=== PATIENT | male | born 1950 | race Two or more races ===

== ENCOUNTER 2017-12-17 05:43 | Inpatient (IN) | payer MEDICARE ==
[~2017-12-17] VITALS: Ht 185.4 cm; Wt 86.2 kg
[2017-12-17] VITALS (16 sets, daily range): BP systolic 116–149; BP diastolic 63–95
[2017-12-17] MEDS ORDERED: [UNRECOGNIZED DRUG - REMARK] PO (06:37)
[2017-12-17] MEDS ORDERED: fentaNYL 100 mcg/2 mL IV ONE (06:41)
[2017-12-17] MEDS ORDERED: Lidocaine 1% MPF 10mg/ml 5ml ONE (06:42)
[2017-12-17] MEDS ORDERED: Midazolam 2mg/2ml Inj ONE (06:42)
[2017-12-17] MEDS ORDERED: Propofol 200mg/20ml IV ONE ×2 (06:42→07:32)
[2017-12-17] MEDS ORDERED: cefOXitin 2gm Inj ONE (06:52)
[2017-12-17] MEDS ORDERED: Zemuron 50mg/5ml Inj IV ONE (06:53)
[2017-12-17] MEDS ORDERED: Succinylcholine 20mg/ml 10ml vial ONE (06:53)
[2017-12-17] MEDS ORDERED: ceFAZolin sod 1 GM in NS 55 ML IVPB ONE (07:00)
[2017-12-17] MEDS ORDERED: NS Irrig 1000ml ONE (07:00)
[2017-12-17] MEDS ORDERED: LR 1000ml ONE (07:00)
[2017-12-17] MEDS ORDERED: Sterile Water Irrig 1000ml IRRIG ONE (07:00)
[2017-12-17] MEDS ORDERED: Neostigmine 1mg/ml 10ml Inj ONE (07:00)
[2017-12-17] MEDS ORDERED: Bupivacaine 0.5% Inj 30 ml vial INJ ONE (07:14)
--- NOTE | 2017-12-17 07:24 | Pre-Procedure Note/Attestation ---
Pre-Procedure Note/Attestation Complete Prior to Procedure Planned Procedure: not applicable Procedure Narrative: laparoscopic radical prostatectomy Indications for Procedure Pre-Operative Diagnosis: prostate cancer Attestation I attest that I discussed the nature of the procedure; its benefits; risks and complications; and alternatives (and the risks and benefits of such alternatives ), prior to the procedure, with the patient (or the patient's legal medical detail representative). I attest that, if there was a reasonable possibility of needing a blood transfusion, the patient (or the patient's legal medical detail representative) was given the [facility] standardized written summary, pursuant to the [place] Blood Safety Act ([place] Health and Safety Code # 1645, as amended). I attest that I re-evaluated the patient just prior to the surgery and that there has been no change in the patient's H&P, except as documented below: Rylan Cao MD Dec 17, 2017 07:24
[2017-12-17] MEDS: ProvayBlue 5mg/ml 10ml amp INJ SCH ×2 (07:45→08:55)
[2017-12-17] MEDS ORDERED: Morphine Sulfate 10mg/ml Inj ONE (08:13)
[2017-12-17] MEDS ORDERED: Glycopyrrolate 0.2mg/ml 1ml Vial ONE (08:14)
[2017-12-17] MEDS ORDERED: Ketorolac 30mg Inj ONE (08:14)
[2017-12-17] MEDS ORDERED: Sodium Chloride 10ml vial INJ ONE (08:15)
[2017-12-17] MEDS ORDERED: LR 1000ml 1,000 ML IVLG SCH (08:26)
--- NOTE | 2017-12-17 08:26 | Anethesia Preoperative Eval ---
Anesthesia Pre-op PMH/ROS General Date of Evaluation: Dec 17, 2017 Time of Evaluation: 07:10 Anesthesiologist: Sj ASA Score: ASA 2 Mallampati Score Class I : Soft palate, uvula, fauces, pillars visible Class II: Soft palate, uvula, fauces visible Class III: Soft palate, base of uvula visible Class IV: Only hard plate visible Mallampati Classification: Class II Surgeon: Nash Diagnosis: Prostate CA Surgical Procedure: Laparoscopic prostateectomy Anesthesia History: none Social History: smoking - h/o Family History: no anesthesia problems Allergies: Coded Allergies: No Known Allergies (Unverified , 12/16/17) Past Medical History Cardiovascular: Reports: HTN; Denies: CAD, [place], valve dz, arrhythmia, other Pulmonary: Denies: asthma, COPD, RICHAR, other Gastrointestinal/Genitourinary: Reports: GERD - mild; Denies: CRI, ESRD, other Neurologic/Psychiatric: Denies: dementia, CVA, depression/anxiety, TIA, other Endocrine: Denies: DM, hypothyroidism, steroids, other HEENT: Denies: cataract (L), cataract (R), glaucoma, PAMUNKEY (L), PAMUNKEY (R), other Hematology/Immune: Denies: anemia, DVT, bleeding disorder, other Musculoskeletal/Integumentary: Denies: OA, RA, DJD, DDD, edema, other PMH Narrative: as above PSxH Narrative: Appendectomy, hernia repair Anesthesia Pre-op Phys. Exam Physician Exam Last Vital Signs Date Time Temp Pulse Resp B/P (MAP) Pulse Ox O2 Delivery O2 Flow Rate FiO2 12/17/17 07:03 97.9 59 20 149/95 (113) 99 97.9 12/17/17 06:27 Room Air Constitutional: NAD Neurologic: CN 2-12 intact Cardiovascular: RRR, no M/R/G Respiratory: CTA Gastrointestinal: S/NT/ND Airway Exam Mallampati Score: Class II MO: full Neck: flexible ROM: full Teeth: missing Dentures: no upper, no lower Anesthesia Pre-op A/P Labs see chart Studies Pre-op Studies: EKG - NSR, CXR - WNL Risk Assessment & Plan Assessment: ASA 2 Plan: GA with ETT Status Change Before Surgery: No Pre-Antibiotics Drug: Cefoxitin 2gr. Given Within 1 Hr of Incision: Yes Time Given: 08:02 Thiago Gustafson MD Dec 17, 2017 08:26
[2017-12-17] MEDS ORDERED: fentaNYL 100 mcg/2 mL IV PRN (08:30)
[2017-12-17] MEDS ORDERED: Ketorolac 30mg Inj IV PRN (08:30)
[2017-12-17] MEDS ORDERED: Midazolam 2mg/2ml Inj IVP PRN (08:30)
[2017-12-17] MEDS ORDERED: DiphenhydrAMINE 50mg/ml Inj IVP PRN (08:30)
[2017-12-17] MEDS ORDERED: Meperidine 50mg/ml Inj(FOR RIGORS ONLY) IV PRN (08:30)
[2017-12-17] MEDS ORDERED: NS Irrig 1000ml IRRIG ONE (08:48)
[2017-12-17] MEDS ORDERED: Surgicel 4in x 8in TOPIC ONE (09:55)
--- NOTE | 2017-12-17 10:09 | Brief Operative Note ---
Immediate Post Operative Note Operative Note Pre-op Diagnosis: prostate cancer Procedure: laparascopic radical prostatectomy Post-op Diagnosis: same Post-op Diagnosis: same as pre-op Surgeon: rufino cao [employer]: wilber james Anesthesia: general Specimen: yes Complications: none Condition: stable Fluids: 3000 Estimated Blood Loss: minimal Drains: ANGELA Implant(s) used?: No Rylan Cao MD Dec 17, 2017 10:09
[2017-12-17] MEDS ORDERED: Ketorolac 30mg Inj IM PRN (10:15)
--- NOTE | 2017-12-17 11:19 | Immediate Post-Op Evaluation ---
Immediate Post-Op Evalulation Immediate Post-Op Evalulation Procedure: Laparoscopic prostatectomy Date of Evaluation: Dec 17, 2017 Time of Evaluation: 10:16 IV Fluids: 2300 Blood Products: Hespan 500 Estimated Blood Loss: 400 Urinary Output: n/a Blood Pressure Systolic: 123 Blood Pressure Diastolic: 74 Pulse Rate: 68 Respiratory Rate: 20 O2 Sat by Pulse Oximetry: 98 Temperature (Fahrenheit): 97.6 Pain Score (1-10): 2 Nausea: No Vomiting: No Complications none Patient Status: reacts, patent, extubated, none Hydration Status: adequate Thiago Gustafson MD Dec 17, 2017 11:19
[2017-12-17 11:31] LABS: HEMATOCRIT 31.8 % (42.0-52.0); HEMOGLOBIN 10.7 G/DL (14.2-18.0); MEAN CORPUSCULAR VOLUME 88 FL (80-99); PLATELET COUNT 193 K/UL (150-450); RED BLOOD COUNT 3.61 M/UL (4.70-6.10); RED CELL DISTRIBUTION WIDTH 11.7 % (11.6-14.8); WHITE BLOOD COUNT 11.8 K/UL (4.8-10.8)
[2017-12-17 11:34] LABS: ANION GAP 4 mmol/L (5-15); BLOOD UREA NITROGEN 19 mg/dL (7-18); CALCIUM 7.9 MG/DL (8.5-10.1); CARBON DIOXIDE 28 MMOL/L (21-32); CHLORIDE 110 MMOL/L (98-107); CREATININE 0.9 MG/DL (0.55-1.30); POTASSIUM 3.9 MMOL/L (3.5-5.1); SODIUM 142 MMOL/L (136-145)
[2017-12-17] MEDS ORDERED: HYDROmorphone 1mg/ml Carpuject IVP PRN (14:00)
[2017-12-17] MEDS ORDERED: Norco 5mg/325mg tab ORAL PRN (14:00)
[2017-12-17] MEDS: D5 1/2NS w/KCl 20mEq 1,000 ML IV SCH (14:37)
[2017-12-17] MEDS ORDERED: ceFAZolin sod 2 GM in D5W 110 ML IV SCH (15:30)
[2017-12-17] MEDS: ceFAZolin 2gm/50ml Premix 50 ML IV SCH ×2 (15:45→23:26)
[2017-12-17] MEDS: Docusate 100mg cap ORAL SCH (18:00)
--- NOTE | 2017-12-17 23:45 | Operative Note - Dictated ---
DATE OF OPERATION: 12/17/2017 PREOPERATIVE DIAGNOSIS: Prostate cancer. POSTOPERATIVE DIAGNOSIS: Prostate cancer. OPERATION PERFORMED: Laparoscopic radical prostatectomy. SURGEON: Rylan Cao M.D. ANESTHESIA: General. AVIATION MANAGER: Zack Bach M.D. FINDINGS: Enlarged prostate. INDICATION FOR SURGERY: The patient has had elevated PSA and had a prostate biopsy that showed multifocal prostate cancer. Treatment options were explained to him in great length including all potential complications. He underwent metastatic workup, which was negative and cleared for surgery. All potential complications of surgery have been discussed with the patient. He agreed to have surgical procedure, laparoscopic prostatectomy and signed a consent. DESCRIPTION FOR PROCEDURE: He was brought to the operating room, placed in the supine position, and prepped and draped in standard fashion under general anesthesia. Veress needle was placed in the umbilicus and pneumoperitoneum was created to 15 mmHg. After that five trocars, three 5 mm and two 12 mm were placed in standard position. Dr. Bach started dissection of the adhesions of the colon on the left side sigmoid colon and he provided access to the retroperitoneal area. After that dissection of the bladder started in the retrovesical area vas deferens and both seminal vesicles. Vas deferens was clipped and severed. Seminal vesicle was dissected using sharp and blunt dissection. After that Denonvilliers' fascia was opened and prostate was dissected from the rectum. Dissection then carried anteriorly and bladder from the pubis and the pelvic fascia was opened with Harmonic scalpel. The dorsal venous complex was transected with the Endo-SHU. Bladder neck sparing technique was used to separate the bladder from the prostate. Median lobe of the prostate was protruding into the bladder and using dissection, both ureteral orifices were carefully preserved and the prostate was removed from the bladder using bladder neck sparing technique. Bladder was then reconstructed using 2-0 Vicryl suture and the prostate was removed from the neurovascular bundles and dissected towards the apex. Urethra was transected. Garcia catheter was removed. Both neurovascular bundles were carefully preserved. After that using a running 2-0 Monocryl suture, bladder neck was reapproximated with urethra over 20-Trinidadian Garcia catheter in a watertight anastomosis. Bladder was then filled with normal saline and irrigated. No evidence of leaks. Estimated blood was approximately 400 mL. Further hemostasis was accomplished by electrocautery and some additional hemoclips. Prostate was removed using Endomag. ANGELA drain was placed and positioned in the prostate bed. FloSeal was used for prevention of the bleeding on both sides of the neurovascular bundles. Sponge count and instrument count was correct. The prostate was removed and wounds were closed in multiple layers, subcuticular closure for the skin. Rylan Cao M.D. DR: CA JOB#: [id number] CC:
[2017-12-18] VITALS (9 sets, daily range): BP systolic 133–170; BP diastolic 76–93
[2017-12-18] MEDS: D5 1/2NS w/KCl 20mEq 1,000 ML IV SCH ×3 (00:53→20:47)
[2017-12-18 07:36] LABS: ANION GAP 6 mmol/L (5-15); BASOPHILS % (AUTO) 0.3 % (0.0-2.0); BLOOD UREA NITROGEN 15 mg/dL (7-18); CALCIUM 8.4 MG/DL (8.5-10.1); CARBON DIOXIDE 26 MMOL/L (21-32); CHLORIDE 108 MMOL/L (98-107); CREATININE 0.7 MG/DL (0.55-1.30); HEMATOCRIT 31.2 % (42.0-52.0); HEMOGLOBIN 10.5 G/DL (14.2-18.0); LYMPHOCYTES % (AUTO) 11.6 % (20.0-45.0); MEAN CORPUSCULAR VOLUME 88 FL (80-99); NEUTROPHILS % (AUTO) 79.1 % (45.0-75.0); PLATELET COUNT 176 K/UL (150-450); POTASSIUM 3.7 MMOL/L (3.5-5.1); RED BLOOD COUNT 3.53 M/UL (4.70-6.10); RED CELL DISTRIBUTION WIDTH 11.6 % (11.6-14.8); SODIUM 140 MMOL/L (136-145); WHITE BLOOD COUNT 7.8 K/UL (4.8-10.8)
[2017-12-18] MEDS: Docusate 100mg cap ORAL SCH ×2 (08:50→17:48)
--- NOTE | 2017-12-18 11:36 | 48 Hour Post Anesthesia Eval ---
Post Anesthesia Evaluation Procedure: Laparoscopic prostatectomy Date of Evaluation: Dec 18, 2017 Time of Evaluation: 11:35 Blood Pressure Systolic: 138 0: 92 Pulse Rate: 72 Respiratory Rate: 20 Temperature (Fahrenheit): 97.6 O2 Sat by Pulse Oximetry: 98 Airway: patent Nausea: No Vomiting: No Pain Intensity: 2 Cardiopulmonary Status: stable Mental Status/LOC: patient returned to baseline Follow-up Care/Observations: n/a Post-Anesthesia Complications: none Follow-up care needed: N/A Thiago Gustafson MD Dec 18, 2017 11:36
--- NOTE | 2017-12-18 22:00 | Consultation ---
DATE OF CONSULTATION: 12/18/2017 INTERNAL MEDICINE CONSULTATION HISTORY OF PRESENT ILLNESS: This is a 67-year-old [place] male with a previous history of hypertension, previous heavy alcohol and tobacco use, and degenerative arthritis, who underwent urological procedure by Dr. Rylan Cao yesterday. The patient underwent laparoscopic radical prostatectomy, which was uncomplicated. The indication was prostate carcinoma. At this time, he is feeling well. Denies any complaints. PAST MEDICAL HISTORY: Notable for hypertension, degenerative osteoarthritis, and prostate carcinoma. PREVIOUS SURGERIES: Appendectomy surgery. HOME MEDICATIONS: Lisinopril/hydrochlorothiazide 12.5/10 mg daily. ALLERGIES: None. REVIEW OF SYSTEMS: Denies any headaches, hematemesis, melena, hematochezia, or weight loss. PHYSICAL EXAMINATIONS: GENERAL: Reveals a 67-year-old male. VITAL SIGNS: Blood pressure 140/90, heart rate 84, and respirations 20. He is afebrile. HEENT: Unremarkable. LUNGS: Clear breath sounds bilaterally. ABDOMEN: Soft. EXTREMITIES: There is no edema NEUROLOGIC: Nonfocal. IMPRESSION: 1. Status post laparoscopic radical prostatectomy. 2. Hypertension. DISCUSSION: 1. Continue postoperative care. 2. We will follow and trend laboratories. 3. Drain and Garcia is in place. 4. We will follow carefully. Haresh Paredes M.D. DR: ROBIN JOB#: [id number] CC:
[2017-12-19] VITALS: BP 143/94
[2017-12-19 04:00] VITALS: BP 157/89
--- NOTE | 2017-12-19 05:30 | Operative Note - Dictated ---
DATE OF OPERATION: 12/17/2017 NOTE: "VERY POOR AUDIO QUALITY" OPERATING SURGEON: Zack Bach M.D. HEATER ROOM HELPER: Rylan Cao M.D. ANESTHESIA: General endotracheal. ANESTHESIOLOGIST: Thiago Gustafson M.D. PREOPERATIVE DIAGNOSIS: Intra-abdominal adhesions. POSTOPERATIVE DIAGNOSIS: Intra-abdominal adhesions. PROCEDURE PERFORMED: Laparoscopic lysis of adhesions. BACKGROUND: The patient is a 57-year-old laparoscopic prostatectomy with dense adhesions to the between the small bowel found to the abdominal wall access to the prostatic gland, and I was requested by Urological Surgery, Dr. Rylan Cao, to perform lysis of adhesions. INTRAOPERATIVE FINDINGS: As above. OPERATIVE PROCEDURE: Pneumoperitoneum was created by Dr. Rylan Cao, and two 5 mm trocars were placed into the right abdomen. After that, the above-mentioned findings were appreciated. using sharp and blunt dissection through the right-sided 5 mm trocars, I took down the adhesions between the omentum and the anterior abdominal wall. The was densely adherent to the anterior abdominal wall and the pelvic outlet. Using endoscopic viviane, the adhesions between the and the pelvic outlet were sharply taken down. The complete mobilization of the was achieved, that allowed us to reflect the bowel up and to open the pelvic outlet. By this maneuver, safe access to the prostate gland was gained, and the rest of the procedure was performed by Dr. Rylan Cao, and he will dictate his report in detail separately. Zack Bach M.D. DR: Michelle JOB#: [id number] CC:
[2017-12-19] MEDS: D5 1/2NS w/KCl 20mEq 1,000 ML IV SCH (06:11)
[2017-12-19 06:41] LABS: BASOPHILS % (AUTO) 0.3 % (0.0-2.0); EOSINOPHILS % (AUTO) 2.6 % (0.0-3.0); HEMATOCRIT 33.4 % (42.0-52.0); HEMOGLOBIN 11.4 G/DL (14.2-18.0); MEAN CORPUSCULAR VOLUME 89 FL (80-99); MONOCYTES % (AUTO) 9.1 % (1.0-10.0); PLATELET COUNT 177 K/UL (150-450); RED BLOOD COUNT 3.75 M/UL (4.70-6.10); RED CELL DISTRIBUTION WIDTH 11.7 % (11.6-14.8); WHITE BLOOD COUNT 5.2 K/UL (4.8-10.8)
[2017-12-19 06:54] LABS: ANION GAP 7 mmol/L (5-15); BLOOD UREA NITROGEN 8 mg/dL (7-18); CALCIUM 8.9 MG/DL (8.5-10.1); CARBON DIOXIDE 26 MMOL/L (21-32); CHLORIDE 105 MMOL/L (98-107); CREATININE 0.8 MG/DL (0.55-1.30); POTASSIUM 4.2 MMOL/L (3.5-5.1); SODIUM 138 MMOL/L (136-145)
[2017-12-19 08:00] VITALS: BP 155/103
--- NOTE | 2017-12-19 08:54 | Pulmonology Progress Note ---
Assessment/Plan Assessment/Plan IMPRESSION: 1. Status post laparoscopic radical prostatectomy. 2. Hypertension. DISCUSSION: 1. Continue postoperative care. 2. Discussed with urology 3. Drain and Garcia is in place. Likely drain removal today DC planning for home Subjective Interval Events: Doing well Constitutional: Reports: no symptoms HEENT: Repors: no symptoms Respiratory: Reports: no symptoms Cardiovascular: Reports: no symptoms Gastrointestinal/Abdominal: Reports: no symptoms Genitourinary: Reports: no symptoms Allergies: Coded Allergies: No Known Allergies (Unverified , 12/16/17) Objective Last 24 Hour Vital Signs Date Time Temp Pulse Resp B/P (MAP) Pulse Ox O2 Delivery O2 Flow Rate FiO2 12/19/17 04:00 97.4 16 157/89 (111) 75 97.4 12/19/17 00:00 97.8 75 18 143/94 (110) 96 97.8 12/18/17 21:00 Room Air 12/18/17 20:00 98.4 74 17 141/81 (101) 93 98.4 12/18/17 18:07 90 154/92 (112) 12/18/17 16:20 81 20 166/93 (117) 12/18/17 16:00 98.8 76 20 164/88 (113) 96 98.8 12/18/17 15:30 98.9 76 20 170/91 (117) 95 98.9 12/18/17 12:00 99.0 78 20 137/92 (107) 96 99.0 12/18/17 11:36 207.7 72 20 98 12/18/17 09:00 Room Air Intake and Output 12/18/17 12/19/17 19:00 07:00 Intake Total 1050 ml 800 ml Output Total 2755 ml 1830 ml Balance -1705 ml -1030 ml Intake Oral 350 ml IV Total 700 ml 800 ml Output Urine Total 2700 ml 1800 ml Drainage Total 55 ml 30 ml General Appearance: no acute distress HEENT: normocephalic Respiratory/Chest: chest wall non-tender, lungs clear Cardiovascular: normal peripheral pulses, normal rate Abdomen: normal bowel sounds Laboratory Tests 12/19/17 05:50: White Blood Count 5.2, Red Blood Count 3.75L, Hemoglobin 11.4L, Hematocrit 33.4L , Mean Corpuscular Volume 89, Mean Corpuscular Hemoglobin 30.5, Mean Corpuscular Hemoglobin Concent 34.2, Red Cell Distribution Width 11.7, Platelet Count 177, Mean Platelet Volume 8.2, Neutrophils (%) (Auto) 76.0H, Lymphocytes ( %) (Auto) 12.0L, Monocytes (%) (Auto) 9.1, Eosinophils (%) (Auto) 2.6, Basophils (%) (Auto) 0.3, Sodium Level 138, Potassium Level 4.2, Chloride Level 105, Carbon Dioxide Level 26, Anion Gap 7, Blood Urea Nitrogen 8, Creatinine 0.8 , Estimat Glomerular Filtration Rate > 60, Glucose Level 115H, Calcium Level 8.9 Current Medications Medications (Trade) Dose Ordered Sig/Erich Route PRN Reason Start Time Stop Time Status Last Admin Dose Admin Acetaminophen (Tylenol) 650 mg Q4H PRN ORAL FEVER 12/17/17 14:00 01/16/18 13:59 Acetaminophen (Tylenol) 650 mg Q6H PRN ORAL Mild Pain (Pain Scale 1-3) 12/17/17 13:30 01/16/18 13:29 Acetaminophen/ Hydrocodone Bitart ([place] 5/325) 1 tab Q4H PRN ORAL Moderate Pain (Pain Scale 4-6) 12/17/17 14:00 12/24/17 13:59 12/18/17 17:56 Dextrose/ Electrolytes 1,000 ml @ 100 mls/hr Q10H IV 12/17/17 14:00 01/16/18 13:59 12/19/17 06:11 Docusate Sodium (Colace) 100 mg TWICE A DAY ORAL 12/17/17 18:00 01/16/18 17:59 12/18/17 17:48 Hydromorphone HCl (Dilaudid) 1 mg Q3H PRN IVP Moderate Pain (Pain Scale 4-6) 12/17/17 14:00 12/24/17 13:59 Ketorolac Tromethamine (Toradol 30mg) 30 mg Q6H PRN IM breakthrough pain 12/17/17 10:15 12/22/17 10:14 Ondansetron HCl (Zofran) 4 mg Q6H PRN IVP Nausea & Vomiting 12/17/17 13:30 01/16/18 13:29 Temazepam (Restoril) 7.5 mg QHS PRN ORAL Insomnia 12/17/17 21:00 12/24/17 20:59 Haresh Paredes MD Dec 19, 2017 08:54
[2017-12-19] MEDS: Docusate 100mg cap ORAL SCH (08:55)
[2017-12-19] MEDS ORDERED: DOK100 M1 ORAL (08:57)
[2017-12-19] MEDS ORDERED: NORCO 5-325 TA1 EACH ORAL (08:57)
[2017-12-19] MEDS ORDERED: LEVAQUIN500 MG ORAL (08:57)
[2017-12-19 12:00] VITALS: BP 154/88
--- NOTE | 2017-12-22 13:42 | Discharge Summary ---
Discharge Summary Hospital Course Date of Admission Dec 17, 2017 at 13:13 Date of Discharge Dec 19, 2017 at 12:45 Admitting Diagnosis prostate cancer Reason for Hospitalization: elective surgery ERENDIRA Burton is a 67 year old male who was admitted on Dec 17, 2017 at 13: 13 for prostate cancer. Patient was admitted for elective surgery. Consultations Dr Paredes IM Dr Bach - assisted surgeon Procedures s/p 12/17/[address] Cao Laparoscopic radical prostatectomy. s/p 12/17/[address] Bach Laparoscopic lysis of adhesions. Hospital Course s/p surgery course of recovery uneventful initially IV fluids empiric antibiotics ANGELA drain initially, output closely monitored output decreased , ANGELA discontinued prior to discharge pain management addressed , and pain controlled patient ambulated as tolerated blood pressure was closely monitored and remained stable patient slowly started on diet, was able to tolerate antiemetics were on board as needed bowel regimen instituted dressing clean dry and intact hemoglobin and hematocrit remained stable initial postoperative leukocytosis resolved, no fever Garcia catheter was changed to leg bag prior to discharge ; patient was taught how to empty leg bag pathology report revealed prostate adenocarcinoma grade 2. Resection margin negative for malignancy. No evidence of extraprostatic extension. prescription for antibiotics, stool softener and analgesic provided discharge instruction provided patient to follow-up with surgeon as advised patient was stable for discharge home with services ( arranged) FINAL DIAGNOSES Prostate cancer Status post laparoscopic radical prostatectomy. Hypertension. Discharge Medications New Medications: Levofloxacin* (Levaquin*) 500 Mg Tablet 500 MG ORAL DAILY for 7 Days, TAB Docusate Sodium (Dok) 100 Mg Capsule 100 MG ORAL TWICE A DAY for 10 Days, CAP Hydrocodone Bit/Acetaminophen 5-325* ([place] 5-325*) 1 Each Tablet 1 TAB ORAL Q4H PRN for 10 Days, TAB Discontinued Medications: [Urine Pill] () PO DA Discharge Condition Upon Discharge: stable Discharge Disposition Patient was discharged to Home with Home Health(06) Discharge Instructions Discharge Instructions Special Instructions I have been assigned to complete a D/C Summary on this account. I was not involved in the patient management Iman Samuels NP Dec 22, 2017 13:42
== END 2017-12-19 12:45 | disposition home or self-care (01) | DRG 708 ==
LOC: SUR 05:43 → 3E 13:13
PROC: 0VT04ZZ Resection of Prostate, Percutaneous Endoscopic Approach (ICD-10-PCS; principal; 2017-12-17 07:30)
PROC: 0DNW4ZZ Release Peritoneum, Percutaneous Endoscopic Approach (ICD-10-PCS; principal; 2017-12-17 07:30)
DX: C61 Malignant neoplasm of prostate (principal); K66.0 Peritoneal adhesions (postprocedural) (postinfection); I10 Essential (primary) hypertension; M19.90 Unspecified osteoarthritis, unspecified site
CPT/HCPCS: 36415; 80048; 85007; 85025; 86850; 86900; 86901; J2250; J2710